=== PATIENT | female | born 1995 | race Hispanic/Latino ===

== ENCOUNTER 2018-12-10 23:06 | Emergency (ER) | payer SELFPAY ==
[2018-12-11 01:22] LABS: ALT/SGPT 39 U/L (12-78); AST/SGOT 23 U/L (15-37); Albumin 4.3 g/dL (3.4-5.0); Alkaline Phosphatase 97 U/L (45-117); BUN Blood Urea Nitrogen 15 mg/dL (7-18); Bicarbonate 28 mmol/L (21-32); Bilirubin Direct 0.1 mg/dL (0-0.2); Bilirubin Total 0.6 mg/dL (0.2-1.0); Glucose Level 85 mg/dL (74-106); Lipase 73 U/L (73-393); Potassium 3.2 mmol/L (3.5-5.1); Protein, Total 8.6 g/dL (6.4-8.2); Sodium Level 139 mmol/L (136-145)
[2018-12-11 01:23] LABS: Urine Blood NEGATIVE (NEG); Urine Glucose NEGATIVE (NEG); Urine Protein 1+ (NEG); Urine Specific Gravity 1.025 (1.005-1.030); Urine pH 5.5 (5.0-7.0)
[2018-12-11 01:27] LABS: Absolute Lymphocytes (CBC) 1.6 K/uL (0.7-4.9); Absolute Monocytes 0.6 K/uL (0.1-1.3); Absolute Neutrophil 7.2 K/uL (1.8-8.0); Basophils % 0.2 % (0-1.3); Eosinophils % 2.4 % (0-4.4); Hematocrit 43.7 % (36.0-45.0); Lymphocytes % 16.4 % (15.3-44.8); MPV 10.4 fL (7.6-11.3); Monocytes % 6.5 % (3.3-12.3); RBC Red Blood Cell Count 5.08 M/uL (3.86-4.86)
[2018-12-11] MEDS ORDERED: NA CHLORIDE 0.9% 1,000 ML ONE (01:33)
[2018-12-11] MEDS ORDERED: ONDANSETRON 4 MG/2 ML VIAL ONE (01:33)
[2018-12-11] MEDS ORDERED: FAMOTIDINE 20 MG/2 ML VIAL IV ONE (01:33)
[2018-12-11] MEDS ORDERED: KETOROLAC 30 MG/ML INJ ONE (01:33)
[2018-12-11] MEDS ORDERED: POTASSIUM 25 MEQ EFFERV TAB ONE (02:55)
--- NOTE | 2018-12-11 03:50 | ER ---
Nurse's Notes [facility] Name: Meaghan Tinajero Age: 23 yrs Sex: Female : 1995 Arrival Date: 12/10/2018 Time: 23:07 Bed 18 Private MD: Diagnosis: Vomiting;Diarrhea, unspecified;Generalized abdominal pain Presentation: 12/10 23:33 Presenting complaint: Patient states: that she is having nausea, vomiting, diarrhea and fc abd pain. Started at 0300. Has had over 10 episodes of vomiting and diarrhea. Transition of care: patient was not received from another setting of care. Onset of symptoms was December 10, 2018 at 03:00. Risk Assessment: Do you want to hurt yourself or someone else? Patient reports no desire to harm self or others. Initial Sepsis Screen: Does the patient meet any 2 criteria? No. Patient's initial sepsis screen is negative. Does the patient have a suspected source of infection? No. Patient's initial sepsis screen is negative. Care prior to arrival: Medication(s) given: Motrin, last at 1999. 23:33 Method Of Arrival: Ambulatory 23:33 Acuity: EMMA 3 fc Triage Assessment: 23:36 General: Appears comfortable, obese, Behavior is calm, cooperative, appropriate for age. Pain: Complains of pain in abdomen Pain currently is 6 out of 10 on a pain scale. Quality of pain is described as crampy, Pain began gradually, Is continuous, Aggravated by since 0300. EENT: No deficits noted. Neuro: Level of Consciousness is awake, alert, obeys commands, Oriented to person, place, time, situation. Cardiovascular: No deficits noted. Respiratory: No deficits noted. GI: Abdomen is round Bowel sounds present X 4 quads. Abd is soft and non tender Reports cramping, diarrhea, nausea, vomiting. : No deficits noted. Derm: Skin is pink, warm \T\ dry. Musculoskeletal: Circulation, motion, and sensation intact. Capillary refill < 3 seconds, Range of motion: intact in all extremities. 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 - Social history:: Smoking status: Patient uses tobacco products, smokes one pack cigarettes per day. Patient uses alcohol, weekend. Patient/guardian denies using street drugs. - Ebola Screening: : Patient negative for fever greater than or equal to 101.5 degrees Fahrenheit, and additional compatible Ebola Virus Disease symptoms Patient denies exposure to infectious person Patient denies travel to an Ebola-affected area in the 21 days before illness onset. - Family history:: not pertinent. - Hospitalizations: : No recent hospitalization is reported. Screenin/16 00:07 Abuse screen: Denies threats or abuse. Denies injuries from another. Nutritional ed1 screening: No deficits noted. Tuberculosis screening: No symptoms or risk factors identified. Fall Risk None identified. Assessment: 00:07 General: Appears uncomfortable. Pain: Complains of pain in abdomen Pain currently is 6 ed1 out of 10 on a pain scale. Quality of pain is described as aching, Pain began 4 hours ago. Neuro: Level of Consciousness is awake, alert, obeys commands, Oriented to person, place, time, situation. Cardiovascular: Denies chest pain, Heart tones S1 S2 present. Respiratory: Airway is patent Respiratory effort is even, unlabored, Respiratory pattern is regular, symmetrical, Breath sounds are clear bilaterally. GI: Abdomen is non-distended, Bowel sounds present X 4 quads. Abd is soft and non tender X 4 quads. Reports lower abdominal pain, upper abdominal pain, diarrhea, nausea, vomiting. : No signs and/or symptoms were reported regarding the genitourinary system. EENT: No signs and/or symptoms were reported regarding the EENT system. Derm: Skin is intact, is healthy with good turgor, Skin is dry, Skin is normal, Skin temperature is warm. Musculoskeletal: Circulation, motion, and sensation intact. Range of motion: intact in all extremities. 01:29 Reassessment: Patient appears in no apparent distress at this time. No changes from ed1 previously documented assessment. Patient and/or family updated on plan of care and expected duration. Pain level reassessed. Patient is alert, oriented x 3, equal unlabored respirations, skin warm/dry/pink. Patient states symptoms have not improved. 03:01 Reassessment: Patient appears in no apparent distress at this time. Patient and/or ed1 family updated on plan of care and expected duration. Pain level reassessed. Patient is alert, oriented x 3, equal unlabored respirations, skin warm/dry/pink. No vomiting or diarrhea noted Patient states feeling better. Patient states symptoms have improved. 04:18 Reassessment: Patient appears in no apparent distress at this time. Patient and/or ed1 family updated on plan of care and expected duration. Pain level reassessed. Patient is alert, oriented x 3, equal unlabored respirations, skin warm/dry/pink. Patient denies pain at this time. Patient states feeling better. Patient states symptoms have improved. Vital Signs: 12/10 23:31 BP 126 / 88; Pulse 80; Resp 18; Temp 99.1; Pulse Ox 99% ; Weight 99.79 kg; Height 5 ft. fc 2 in. (157.48 cm); Pain 6/10; 12/11 01:29 BP 124 / 73; Pulse 81; Resp 17; Temp 99.0(TE); Pulse Ox 99% on R/A; Pain 6/10; ed1 03:01 BP 136 / 82; Pulse 84; Resp 17; Temp 99.0(TE); Pulse Ox 99% on R/A; Pain 2/10; ed1 04:18 BP 129 / 84; Pulse 83; Resp 17; Temp 98.9(O); Pulse Ox 100% on R/A; Pain 0/10; ed1 12/10 23:31 Body Mass Index 40.24 (99.79 kg, 157.48 cm) ED Course: 12/10 23:07 Patient arrived in ED. am2 23:34 Triage completed. 23:35 Arm band placed on Patient placed in waiting room, Patient notified of wait time. 12/11 00:07 Jody Perez, RN is Primary Nurse. ed1 00:07 Patient has correct armband on for positive identification. Placed in gown. Bed in low ed1 position. Call light in reach. Side rails up X 1. 00:07 Inserted saline lock: 22 gauge in right antecubital area, using aseptic technique. ed1 Blood collected. 00:11 Isaias Stone MD is Attending Physician. il 01:[address] Scan. ed1 02:09 CT completed. Patient tolerated procedure well. Patient moved to CT via wheelchair. Patient moved back from CT. 02:22 CT Abd/Pelvis - W/Contrast In Process Unspecified. EDMS 03:49 Isaias Wheeler MD is Referral Physician. wa 04:18 No provider procedures requiring assistance completed. IV discontinued, intact, ed1 bleeding controlled, No redness/swelling at site. Pressure dressing applied. Administered Medications: 01:24 Drug: Pepcid 20 mg Route: IVP; Site: right antecubital; ed1 02:00 Follow up: Response: No adverse reaction ed1 01:25 Drug: NS 0.9% 1000 ml Route: IV; Rate: 1 bolus; Site: right antecubital; ed1 03:00 Follow up: IV Status: Completed infusion; IV Intake: 1000ml ed1 01:25 Drug: TORadol 30 mg Route: IVP; Site: right antecubital; ed1 03:01 Follow up: Response: No adverse reaction; Pain is decreased ed1 01:25 Drug: Zofran 4 mg Route: IVP; Site: right antecubital; ed1 02:00 Follow up: Response: No adverse reaction; Nausea is decreased ed1 03:00 Drug: Potassium Effervescent Tablet 50 mEq Route: PO; ed1 04:20 Follow up: Response: No adverse reaction ed1 Intake: 03:00 IV: 1000ml; Total: 1000ml. ed1 Outcome: 03:50 Discharge ordered by . wa 04:18 Discharged to home ambulatory, with significant other. ed1 04:18 Condition: good 04:18 Discharge instructions given to patient, Instructed on discharge instructions, follow up and referral plans. medication usage, Demonstrated understanding of instructions, follow-up care, medications, Prescriptions given X 2. 04:20 Patient left the ED. ed1 Signatures: Dispatcher [employer] EDMS Nic Manuel Leticia Lam RN RN Jody Perez RN RN ed1 Elsa Martines am2 Isaias Stone MD MD wa Corrections: (The following items were deleted from the chart) 03:01 02:00 Response: No adverse reaction; Nausea is decreased ed1 ed1
--- NOTE | 2018-12-11 03:51 | EDPHYS ---
Physician Documentation [facility] Name: Meaghan Tinajero Age: 23 yrs Sex: Female : 1995 Arrival Date: 12/10/2018 Time: 23:07 Bed 18 Private MD: ED Physician Isaias Stone HPI: 12/11 07:40 This 23 yrs old Female presents to ER via Ambulatory with complaints of wa Vomiting/Diarrhea. 07:40 The patient presents to the emergency department with nausea, vomiting, diarrhea, wa abdominal pain. Onset: The symptoms/episode began/occurred yesterday. Possible causes: unknown. The symptoms are aggravated by nothing. The symptoms are alleviated by nothing. Associated signs and symptoms: Pertinent positives: abdominal pain, diarrhea, fever, nausea, vomiting, Pertinent negatives: GI bleeding. Severity of symptoms: At their worst the symptoms were moderate in the emergency department the symptoms are unchanged. The patient has not experienced similar symptoms in the past. The patient has not recently seen a physician. significant other with same. 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 - Social history:: Smoking status: Patient uses tobacco products, smokes one pack cigarettes per day. Patient uses alcohol, weekend. Patient/guardian denies using street drugs. - Ebola Screening: : Patient negative for fever greater than or equal to 101.5 degrees Fahrenheit, and additional compatible Ebola Virus Disease symptoms Patient denies exposure to infectious person Patient denies travel to an Ebola-affected area in the 21 days before illness onset. - Family history:: not pertinent. - Hospitalizations: : No recent hospitalization is reported. ROS: 12/11 07:41 Constitutional: Negative for fever, chills, and weight loss, Eyes: Negative for injury, wa pain, redness, and discharge, ENT: Negative for injury, pain, and discharge, Neck: Negative for injury, pain, and swelling, Cardiovascular: Negative for chest pain, palpitations, and edema, Respiratory: Negative for shortness of breath, cough, wheezing, and pleuritic chest pain, Back: Negative for injury and pain, : Negative for injury, bleeding, discharge, and swelling, MS/Extremity: Negative for injury and deformity, Skin: Negative for injury, rash, and discoloration, Neuro: Negative for headache, weakness, numbness, tingling, and seizure. Abdomen/GI: Positive for abdominal pain, nausea and vomiting, vomiting, diarrhea. All other systems are negative. Exam: 07:42 Constitutional: This is a well developed, well nourished patient who is awake, alert, wa and in no acute distress. Head/Face: Normocephalic, atraumatic. Eyes: Pupils equal round and reactive to light, extra-ocular motions intact. Lids and lashes normal. Conjunctiva and sclera are non-icteric and not injected. Cornea within normal limits. Periorbital areas with no swelling, redness, or edema. ENT: Nares patent. No nasal discharge, no septal abnormalities noted. Tympanic membranes are normal and external auditory canals are clear. Oropharynx with no redness, swelling, or masses, exudates, or evidence of obstruction, uvula midline. Mucous membranes moist. Neck: Trachea midline, no thyromegaly or masses palpated, and no cervical lymphadenopathy. Supple, full range of motion without nuchal rigidity, or vertebral point tenderness. No Meningismus. Chest/axilla: Normal chest wall appearance and motion. Nontender with no deformity. No lesions are appreciated. Cardiovascular: Regular rate and rhythm with a normal S1 and S2. No gallops, murmurs, or rubs. Normal PMI, no JVD. No pulse deficits. Respiratory: Lungs have equal breath sounds bilaterally, clear to auscultation and percussion. No rales, rhonchi or wheezes noted. No increased work of breathing, no retractions or nasal flaring. Back: No spinal tenderness. No costovertebral tenderness. Full range of motion. Skin: Warm, dry with normal turgor. Normal color with no rashes, no lesions, and no evidence of cellulitis. MS/ Extremity: Pulses equal, no cyanosis. Neurovascular intact. Full, normal range of motion. Neuro: Awake and alert, GCS 15, oriented to person, place, time, and situation. Cranial nerves II-XII grossly intact. Motor strength 5/5 in all extremities. Sensory grossly intact. Cerebellar exam normal. Normal gait. Psych: Awake, alert, with orientation to person, place and time. Behavior, mood, and affect are within normal limits. 07:42 Abdomen/GI: Inspection: abdomen appears normal, Bowel sounds: normal, in all quadrants, Palpation: soft, in all quadrants, mild abdominal tenderness, in the diffuse. Vital Signs: 12/10 23:31 BP 126 / 88; Pulse 80; Resp 18; Temp 99.1; Pulse Ox 99% ; Weight 99.79 kg; Height 5 ft. fc 2 in. (157.48 cm); Pain 6/10; 12/11 01:29 BP 124 / 73; Pulse 81; Resp 17; Temp 99.0(TE); Pulse Ox 99% on R/A; Pain 6/10; ed1 03:01 BP 136 / 82; Pulse 84; Resp 17; Temp 99.0(TE); Pulse Ox 99% on R/A; Pain 2/10; ed1 04:18 BP 129 / 84; Pulse 83; Resp 17; Temp 98.9(O); Pulse Ox 100% on R/A; Pain 0/10; ed1 12/10 23:31 Body Mass Index 40.24 (99.79 kg, 157.48 cm) MDM: 00:11 Patient medically screened. nd 07:42 Differential diagnosis: Nonspecific abd pain, appendicitis, diverticulitis, viral wa gastroenteritis, gastroenteritis. Data reviewed: vital signs, nurses notes, lab test result(s), radiologic studies. Test interpretation: by ED physician or midlevel provider: labs noted for hypokalemia. CT abd/pelvis: no acute process. Response to treatment: the patient's symptoms have markedly improved after treatment. 12/11 00:11 Order name: Urine Dipstick--Ancillary (enter results); Complete Time: 12/11 00:11 Order name: Urine --Ancillary (enter results); Complete Time: [facility] 12/11 00:40 Order name: Basic Metabolic Panel; Complete Time: nd 12/11 00:40 Order name: CBC with Diff; Complete Time: nd 12/11 00:40 Order name: Hepatic Function; Complete Time: nd 12/11 00:40 Order name: Lipase; Complete Time: nd 12/11 00:40 Order name: IV Saline Lock; Complete Time: 00:47 nd 12/11 00:40 Order name: Labs collected and sent; Complete Time: 00:47 nd 12/11 00:41 Order name: CT Abd/Pelvis - W/Contrast nd Administered Medications: 01:24 Drug: Pepcid 20 mg Route: IVP; Site: right antecubital; ed1 02:00 Follow up: Response: No adverse reaction ed1 01:25 Drug: NS 0.9% 1000 ml Route: IV; Rate: 1 bolus; Site: right antecubital; ed1 03:00 Follow up: IV Status: Completed infusion; IV Intake: 1000ml ed1 01:25 Drug: TORadol 30 mg Route: IVP; Site: right antecubital; ed1 03:01 Follow up: Response: No adverse reaction; Pain is decreased ed1 01:25 Drug: Zofran 4 mg Route: IVP; Site: right antecubital; ed1 02:00 Follow up: Response: No adverse reaction; Nausea is decreased ed1 03:00 Drug: Potassium Effervescent Tablet 50 mEq Route: PO; ed1 04:20 Follow up: Response: No adverse reaction ed1 Disposition: 12/11/18 03:50 Discharged to Home. Impression: Vomiting, Diarrhea, unspecified, Generalized abdominal pain. - Condition is Stable. - Discharge Instructions: Abdominal Pain, Adult, Diarrhea, Adult, Nausea and Vomiting, Adult, [id number]. - Prescriptions for Zofran 4 mg Oral Tablet - take 1 tablet by ORAL route every 12 hours As needed; 20 tablet. Pepcid 20 mg Oral Tablet - take 1 tablet by ORAL route once daily for 10 days; 10 tablet. - Medication Reconciliation Form, Thank You Letter, Antibiotic Education, Prescription Opioid Use form. - Follow up: Isaias Wheeler MD; When: 2 - 3 days; Reason: Recheck today's complaints. - Problem is new. - Symptoms have improved. Signatures: Dispatcher [employer] EDMS Leticia Lam RN RN Jody Perez RN RN ed1 Isaias Stone MD MD wa Corrections: (The following items were deleted from the chart) 04:20 03:50 12/11/2018 03:50 Discharged to Home. Impression: Vomiting; Diarrhea, unspecified; ed1 Generalized abdominal pain. Condition is Stable. Forms are Medication Reconciliation Form, Thank You Letter, Antibiotic Education, Prescription Opioid Use. Follow up: Isaias Wheeler; When: 2 - 3 days; Reason: Recheck today's complaints. Problem is new. Symptoms have improved. venita
--- NOTE | 2018-12-15 15:55 | RAD REPORT ---
EXAM DESCRIPTION: CT - Abdomen Pelvis W Contrast - 12/11/2018 6:42 am CLINICAL HISTORY: The patient is 23 years old and is Female; abd pain, vomiting TECHNIQUE: Axial computed tomography images of the abdomen and pelvis with intravenous contrast. S agittal and coronal reformatted images were created and reviewed. This CT exam was performed using one or more of the following dose reduction techniques: automated exposure control, adjustment of t he mA and/or kV according to patient size, and/or use of iterative reconstruction technique. COMPARISON: CT abdomen and pelvis without contrast dated July 10, 2017 FINDINGS: LUNG BASES: Unremarkable. No mass. No consolidation. ABDOMEN: LIVER: Diffuse hepatic steatosis. Mild hepatomegaly measuring 18.7 cm. GALLBLADDER AND BILE DUCTS: Unremarkable. No calcified stones. No ductal dilation. PANCREAS: Unremarkable. No mass. No ductal dilation. SPLEEN: Unremarkable. No splenomegaly. ADRENALS: Unremarkable. No mass. KIDNEYS AND URETERS: Unremarkable. No solid mass. No hydronephrosis. STOMACH AND BOWEL: Unremarkable. No obstruction. No mucosal thickening. PELVIS: APPENDIX: The appendix is seen and is within normal limits. BLADDER: The bladder is decompressed. REPRODUCTIVE: Intrauterine contraceptive device and a suggestion of 2.1 cm left ovarian cyst as we ll as 2.5 cm right ovarian cyst. ABDOMEN and PELVIS: INTRAPERITONEAL SPACE: Unremarkable. No free air. No significant fluid collection. BONES/JOINTS: No acute fracture. No dislocation. SOFT TISSUES: Small fat-containing umbilical hernia. VASCULATURE: Unremarkable. No abdominal aortic aneurysm. LYMPH NODES: Unremarkable. No enlarged lymph nodes. IMPRESSION: 1. No acute abdominal or pelvic abnormality. 2. Mild hepatomegaly and diffuse hepatic steatosis. 3. Incompletely characterized pelvic changes with intrauterine contraceptive device and bilateral o varian cyst measuring up to 2.5 cm on the right. No follow-up imaging is recommended. Reference: [place] r ecommendations based on Radiology 2010 Mar;256(3):943-54; CT/MR recommendations based on J Am Sofia Ra diol 2013;10:675-681. Electronically signed by: Nigel Mann DO 12/11/2018 3:12 AM CDT Due to temporary technical issues with the PACS/Fluency reporting system, reports are being signed by the in house radiologist as a courtesy to ensure prompt reporting. The interpreting radiologist is f ully responsible for the content of the report.
== END 2018-12-11 04:20 | disposition home or self-care (01) ==
LOC: ER 23:06
DX: R19.7 Diarrhea, unspecified (principal); R10.84 Generalized abdominal pain; F17.210 Nicotine dependence, cigarettes, uncomplicated
CPT/HCPCS: 36415; 74177; 80048; 80076; 81003; 81025; 83690; 85025; 96361; 96374; 96375; 99284; J2405; J7030; Q9967